=== PATIENT | female | born 1945 | race Two or more races ===

== ENCOUNTER 2019-09-25 10:51 | Day surgery (SDC) | payer OTHER | END 2019-09-25 16:25 | disposition home or self-care (01) | LOC: AMB-ENDOS 10:51 → ADM 14:30 → AMB-ENDOS 14:30 | PROVIDERS: ATTEND Surgery | DX: K62.89 Other specified diseases of anus and rectum (principal); K64.8 Other hemorrhoids ==

== ENCOUNTER 2019-11-02 11:45 | Inpatient (IN) | payer OTHER ==
[~2019-11-02] VITALS: Ht 149.9 cm; Wt 52.6 kg
[2019-11-06] MEDS ORDERED: NORVASC5 MG PO (14:05)
[2019-11-06] MEDS ORDERED: COZAAR100 MG PO (14:05)
[2019-11-06] MEDS ORDERED: SYNTHROID75 MCG PO (14:05)
[2019-11-06] MEDS ORDERED: CLONAZEPAM0.5 MG PO (14:06)
== END 2019-11-11 10:49 | disposition home or self-care (01) | DRG 738 ==
LOC: ADM 11:45 → EDSTATUS 11-06 11:15 → ADM 11-06 11:15 → O/R 11-09 07:23 → SURH 11-09 11:15 → SURG-SUITE 11-09 17:28 → SURH 11-09 19:30 → SURG-SUITE 11-11 10:49
PROVIDERS: ADMIT Obstetrics & Gynecology Gynecologic Oncology; ATTEND Obstetrics & Gynecology Gynecologic Oncology
PROC: 0UT70ZZ Resection of Bilateral Fallopian Tubes, Open Approach (ICD-10-PCS; 2019-11-09)
PROC: 0UT20ZZ Resection of Bilateral Ovaries, Open Approach (ICD-10-PCS; 2019-11-09)
PROC: 07BC0ZX Excision of Pelvis Lymphatic, Open Approach, Diagnostic (ICD-10-PCS; 2019-11-09)
PROC: 0DBU0ZZ Excision of Omentum, Open Approach (ICD-10-PCS; 2019-11-09)
PROC: 0UT90ZZ Resection of Uterus, Open Approach (ICD-10-PCS; principal; 2019-11-09 19:30)
DX: C56.1 Malignant neoplasm of right ovary (principal); K66.0 Peritoneal adhesions (postprocedural) (postinfection); R59.0 Localized enlarged lymph nodes

== ENCOUNTER 2019-11-03 10:04 | Outpatient (CLI) | payer OTHER | END 2019-11-03 10:15 | disposition home or self-care (01) | LOC: LAB 10:04 | PROVIDERS: ATTEND Obstetrics & Gynecology Gynecologic Oncology | DX: D64.89 Other specified anemias (principal); R19.00 Intra-abdominal and pelvic swelling, mass and lump, unspecified site; Z20.828 Contact with and (suspected) exposure to other viral communicable diseases; N39.0 Urinary tract infection, site not specified; R97.1 Elevated cancer antigen 125 [CA 125]; R79.1 Abnormal coagulation profile; Z01.818 Encounter for other preprocedural examination ==